=== PATIENT | male | born 2000 | race Caucasian/White ===

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

== ENCOUNTER 2022-05-23 19:51 | Inpatient (IN) ==
--- NOTE | 2022-05-23 20:36 | Emergency Department Note ---
Impression & Plan Depression with suicidal ideation ED Provider Note Name: AMAURI GUNDERSON Age: 22 Sex: M Arrives Via: Walk-In Informant: Patient ED Provider: Yadiel Wolfe MD Chief Complaint: Suicidal ideation Impression: As per impressions above Medical Decision Makin-year-old male with longstanding history of depression and some chronic underlying suicidal ideation but never significant plan or intent previously. Worsening depression the last few weeks to the point where he is now contemplating jumping off a bridge. He has been in discussions with his head counselor or/psychology team who advised to come to the ER for hospitalization. Patient has not harmed himself he is awake alert oriented does not meet an active furtherance at this point. He is agreeable to inpatient treatment on a voluntary basis. Medical work-up is benign and he was excepted to [facility] in short order. Prior Medical Record and Triage/Nursing Notes reviewed by Me Additional history obtained from chart Differentials:Mood disorder, infection, hypoglycemia, electrolyte abnormalities, cardiac sources, intracerebral event, toxicologic, trauma, neurologic, as well as other pathologies. Vital Signs: reviewed and remarkable for no significant abnormalities Labs:Reviewed and remarkable for no significant abnormalities Consults:[facility] accepts to their facility Plan: Disposition: Discharged.Home. Condition: Good History of Present Illness:22-year-old male arrives for evaluation of suicidal ideation. Patient notes he has a long history of depression with previous suicidal thoughts which are pretty common for him. He is never had any actual attempt and or plan of harming himself. The last few weeks have been quite stressful doing poorly with several of his classes. Over the course of the last week or 2 he started develop plans to kill himself. His current thought is that he would jump off a bridge depending on how he did on his testing and is even figured out which he would do so. Patient denies any actual attempt at harming self, no drug use in the last 2 weeks (previously used marijuana) nor alcohol use. He is on venlafaxine which was recently increased dosing without much improvement. He had previously been on Adderall though this was stopped due to worsening suicidal thoughts. No falls, trauma, injuries. He did talk to his counselor in the last few days who advised to come to the ER for hospitalization for acute depression with suicidal ideation. No medication prior to arrival. Think about classes makes worse, avoiding them makes it better. Per his mother he has had 40 pound weight loss in the last year due to not eating, keeping himself away from others, increased sleeping but also not sleeping during the night. ROS: See above HPI for pertinent positives & negatives. A total of 10 systems reviewed and were otherwise negative. Past Medical History:Anxiety, depression, ADHD Past Surgical History:None Family History:No significant family history other than sister did have a suicide attempt several years ago Social History:[employer] student, fully vaccinated, no tobacco use, occasional marijuana use, rare alcohol use Home Medications:Venlafaxine Allergies:Latex Vitals:Blood Pressure: 139/85, Pulse 107, RR 16, T 36.9C, O2 98% on RA Physical Exam: GENERAL: Patient is well appearing and in no acute distress. EYES: No scleral icterus, unremarkable pupils. ENT: Mucous membranes moist, no nasal congestion. NECK: No masses appreciated, nomeningismus, trachea is midline. RESPIRATORY: No dyspnea. Clear to auscultation and equal bilaterally. No wheeze, no rhonchi. CARDIOVASCULAR: Regular rate and rhythm.No murmurs, rubs, gallops appreciated. GASTROINTESTINAL: Abdomen soft, non-tender, no peritonitis.Bowel sounds positive.No masses appreciated. BACK: No midline tenderness, no CVA tenderness EXTREMITIES: Normal motion all extremities, no cyanosis, no edema. NEUROLOGIC: Alert and oriented, no acute motor or sensory deficits, no focal weakness, cranial nerves grossly intact. SKIN: No rash, no jaundice, no diaphoresis. PSYCH: Sad, depressed, admits suicidal ideation plan, denies hallucinations, states increased dreams that are depression GCS: 15 Yadiel Wolfe MD Past Med/Surg History Medical History Abdominal pain Depression Laceration of left lower leg Nausea School problem Surgical History No history of previous surgery Family History Grandmother (Maternal) Diabetes Hypertension Grandmother (Paternal) Diabetes Hypertension Grandfather (Maternal) Diabetes Hypertension Grandfather (Paternal) Diabetes Hypertension Father Family history of GERD Denies family history of Sudden Ovarian cancer Prostate cancer Myocardial infarction Breast cancer Colorectal cancer ADHD Social History Smoking Status: Former smoker Tobacco Type: E-cigarettes / Vaping Second Hand Exposure: No; Hx Alcohol Use: Yes Alcohol type: beer, wine and hard liquor Alcohol Intake Frequency: Monthly or Less Hx Substance Use: Yes Prescribed Medications: Marijuana Non-Prescribed Medications: Marijuana Last Used Substance Other:: last week Preferred Language: [place]i Communication Ability: Effective Visual Impairment: No Limitations Hearing Ability: Normal Special Education Classroom Aide Required: No Beliefs That Will Affect Care: None marital status: Single Current Living Situation: Family current occupational status: employed and student 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 Feels Safe at Home: No Dental Care, Regularly: Yes Physical Activity Frequency: Does not Exercise Seatbelt Use: always Sunscreen Use: No Assistive Devices: Glasses Allergies Allergies Allergy/AdvReac Type Severity Reaction Status Date / Time latex gloves Allergy Uncoded 02/11/22 11:02 Home Meds Home Medications Medication Instructions Recorded Confirmed venlafaxine 150 mg 225 mg PO DAILY 03/05/22 05/23/22 capsule,extended release 24 hr (Effexor XR) Results & Data (ED) Vital Signs Vital Signs - 24 hr 05/23/22 20:01 Temperature 36.9 C Temperature Source Temporal Artery Scan Pulse Rate 107 H Respiratory Rate 16 Respiratory Effort / Characteristics Non-Labored Spontaneous Respiratory Depth Normal Blood Pressure 139/85 Blood Pressure Mean 103 Pulse Oximetry 98 Oxygen Delivery Method Room Air Sepsis Recent Fever Within 48 Hours No Sepsis New/Unexplained Change in Mental Status No Sepsis Action Taken by Nursing No Action Required Laboratory Data Result diagrams: 05/23/22 20:45 05/23/22 20:45 Lab Results 05/23/22 05/23/22 05/23/22 Range/Units 20:15 20:15 20:15 WBC (4.8-10.8) K/ul RBC (4.63-6.08) M/uL Hgb (14.0-18.0) g/dl Hct (40.1-51.0) % MCV (80.0-100.0) fL MCH (25.0-34.0) pg MCHC (32.0-36.0) g/dL RDW Std Deviation (36.4-46.3) fL RDW Coeff of Francois (11.5-14.5) % Plt Count (130-400) K/uL MPV (9.4-12.4) fL Immature Gran % (Auto) % Neut % (Auto) % Lymph % (Auto) % [place] % (Auto) % Eos % (Auto) % Baso % (Auto) % Neut # (Auto) (1.4-6.5) K/uL Lymph # (Auto) (1.2-3.4) K/uL [place] # (Auto) (0.24-0.82) K/uL Eos # (Auto) (0-0.50) K/uL Baso # (Auto) (0-0.2) K/uL Immature Gran # (Auto) (0.00-0.02) K/uL Sodium (136-145) mmol/L Potassium (3.5-5.1) mmol/L Chloride (98-107) mmol/L Carbon Dioxide (21-32) mmol/L Anion Gap (3-11) BUN (6-23) mg/dl Creatinine (0.6-1.4) mg/dl Est Cr Clr Drug Dosing ml/min Est GFR ( Amer) ml/min Est GFR (Non-Af Amer) ml/min BUN/Creatinine Ratio (10-20) Glucose (70-99(Fasting)) mg/dl Calcium (8.5-10.1) mg/dl Total Bilirubin (0.2-1.0) mg/dl AST (13-39) U/L ALT (7-52) U/L Alkaline Phosphatase (34-104) U/L Total Protein (6.0-8.3) gm/dl Albumin (3.4-5.0) gm/dl Globulin (2.5-4.0) gm/dl Albumin/Globulin Ratio (0.9-2) TSH (0.300-4.500) uIu/ml Urine Color Yellow Urine Appearance Clear (Clear) Urine pH 6.5 (4.5-7.5) Ur Specific [place] 1.004 (1.000-1.030) Urine Protein Negative (Negative) Urine Glucose (UA) Negative (Negative) Urine Ketones Negative (Negative) Urine Blood Negative (Negative) Urine Nitrite Negative (Negative) Urine Bilirubin Negative (Negative) Urine Urobilinogen Negative (Negative) Ur Leukocyte Esterase Negative (Negative) Salicylates (3.0-30) mg/dl Urine Opiates Screen Neg (Neg) Ur Methadone, Qual Neg (Neg) Acetaminophen (10-30) ug/ml Urine Barbiturates Neg (Neg) Ur Phencyclidine (PCP) Neg (Neg) U Amphetamin/Meth Scrn Neg (Neg) MDMA (Ecstasy) Screen Neg (Neg) U Benzodiazepines Scrn Neg (Neg) Ur Cocaine Metabolite Neg (Neg) U Marijuana (THC) Screen Pos H (Neg) Ethyl Alcohol mg/dL (<10.0) mg/dl SARS-CoV-2, RNA, NAAT NEGATIVE (NEGATIVE) 05/23/22 05/23/22 05/23/22 Range/Units 20:45 20:45 20:45 WBC 6.78 (4.8-10.8) K/ul RBC 4.80 (4.63-6.08) M/uL Hgb 14.3 (14.0-18.0) g/dl Hct 41.6 (40.1-51.0) % MCV 86.7 (80.0-100.0) fL MCH 29.8 (25.0-34.0) pg MCHC 34.4 (32.0-36.0) g/dL RDW Std Deviation 39.2 (36.4-46.3) fL RDW Coeff of Francois 12.3 (11.5-14.5) % Plt Count 198 (130-400) K/uL MPV 10.2 (9.4-12.4) fL Immature Gran % (Auto) 0.0 % Neut % (Auto) 57.3 % Lymph % (Auto) 31.3 % [place] % (Auto) 9.4 % Eos % (Auto) 1.6 % Baso % (Auto) 0.4 % Neut # (Auto) 3.88 (1.4-6.5) K/uL Lymph # (Auto) 2.12 (1.2-3.4) K/uL [place] # (Auto) 0.64 (0.24-0.82) K/uL Eos # (Auto) 0.11 (0-0.50) K/uL Baso # (Auto) 0.03 (0-0.2) K/uL Immature Gran # (Auto) 0.00 (0.00-0.02) K/uL Sodium 140 (136-145) mmol/L Potassium 4.0 (3.5-5.1) mmol/L Chloride 104 (98-107) mmol/L Carbon Dioxide 30 (21-32) mmol/L Anion Gap 6 (3-11) BUN 22 (6-23) mg/dl Creatinine 1.24 (0.6-1.4) mg/dl Est Cr Clr Drug Dosing 84.3 ml/min Est GFR ( Amer) 95.0 ml/min Est GFR (Non-Af Amer) 82.0 ml/min BUN/Creatinine Ratio 17.7 (10-20) Glucose 84 (70-99(Fasting)) mg/dl Calcium 9.7 (8.5-10.1) mg/dl Total Bilirubin 0.4 (0.2-1.0) mg/dl AST 15 (13-39) U/L ALT 26 (7-52) U/L Alkaline Phosphatase 39 (34-104) U/L Total Protein 7.2 (6.0-8.3) gm/dl Albumin 4.6 (3.4-5.0) gm/dl Globulin 2.6 (2.5-4.0) gm/dl Albumin/Globulin Ratio 1.8 (0.9-2) TSH 0.652 (0.300-4.500) uIu/ml Urine Color Urine Appearance (Clear) Urine pH (4.5-7.5) Ur Specific [place] (1.000-1.030) Urine Protein (Negative) Urine Glucose (UA) (Negative) Urine Ketones (Negative) Urine Blood (Negative) Urine Nitrite (Negative) Urine Bilirubin (Negative) Urine Urobilinogen (Negative) Ur Leukocyte Esterase (Negative) Salicylates (3.0-30) mg/dl Urine Opiates Screen (Neg) Ur Methadone, Qual (Neg) Acetaminophen (10-30) ug/ml Urine Barbiturates (Neg) Ur Phencyclidine (PCP) (Neg) U Amphetamin/Meth Scrn (Neg) MDMA (Ecstasy) Screen (Neg) U Benzodiazepines Scrn (Neg) Ur Cocaine Metabolite (Neg) U Marijuana (THC) Screen (Neg) Ethyl Alcohol mg/dL (<10.0) mg/dl SARS-CoV-2, RNA, NAAT (NEGATIVE) 05/23/22 05/23/22 Range/Units 20:45 20:45 WBC (4.8-10.8) K/ul RBC (4.63-6.08) M/uL Hgb (14.0-18.0) g/dl Hct (40.1-51.0) % MCV (80.0-100.0) fL MCH (25.0-34.0) pg MCHC (32.0-36.0) g/dL RDW Std Deviation (36.4-46.3) fL RDW Coeff of Francois (11.5-14.5) % Plt Count (130-400) K/uL MPV (9.4-12.4) fL Immature Gran % (Auto) % Neut % (Auto) % Lymph % (Auto) % [place] % (Auto) % Eos % (Auto) % Baso % (Auto) % Neut # (Auto) (1.4-6.5) K/uL Lymph # (Auto) (1.2-3.4) K/uL [place] # (Auto) (0.24-0.82) K/uL Eos # (Auto) (0-0.50) K/uL Baso # (Auto) (0-0.2) K/uL Immature Gran # (Auto) (0.00-0.02) K/uL Sodium (136-145) mmol/L Potassium (3.5-5.1) mmol/L Chloride (98-107) mmol/L Carbon Dioxide (21-32) mmol/L Anion Gap (3-11) BUN (6-23) mg/dl Creatinine (0.6-1.4) mg/dl Est Cr Clr Drug Dosing ml/min Est GFR ( Amer) ml/min Est GFR (Non-Af Amer) ml/min BUN/Creatinine Ratio (10-20) Glucose (70-99(Fasting)) mg/dl Calcium (8.5-10.1) mg/dl Total Bilirubin (0.2-1.0) mg/dl AST (13-39) U/L ALT (7-52) U/L Alkaline Phosphatase (34-104) U/L Total Protein (6.0-8.3) gm/dl Albumin (3.4-5.0) gm/dl Globulin (2.5-4.0) gm/dl Albumin/Globulin Ratio (0.9-2) TSH (0.300-4.500) uIu/ml Urine Color Urine Appearance (Clear) Urine pH (4.5-7.5) Ur Specific [place] (1.000-1.030) Urine Protein (Negative) Urine Glucose (UA) (Negative) Urine Ketones (Negative) Urine Blood (Negative) Urine Nitrite (Negative) Urine Bilirubin (Negative) Urine Urobilinogen (Negative) Ur Leukocyte Esterase (Negative) Salicylates < 3.0 L (3.0-30) mg/dl Urine Opiates Screen (Neg) Ur Methadone, Qual (Neg) Acetaminophen < 3 L (10-30) ug/ml Urine Barbiturates (Neg) Ur Phencyclidine (PCP) (Neg) U Amphetamin/Meth Scrn (Neg) MDMA (Ecstasy) Screen (Neg) U Benzodiazepines Scrn (Neg) Ur Cocaine Metabolite (Neg) U Marijuana (THC) Screen (Neg) Ethyl Alcohol mg/dL < 10.0 (<10.0) mg/dl SARS-CoV-2, RNA, NAAT (NEGATIVE) Discharge Plan Visit Data Chief Complaint: Mental Health Evaluation Stated Complaint: SUICIDAL THOUGHTS. REC BY THERAPIST ED Provider: Yadiel Wolfe Discharge Problem: Depression with suicidal ideation Patient Disposition: Admitted As Inpatient Discharge Instructions Interventions: ED Discharge Assessment Last Done: 05/24/22 00:20
[2022-05-23 20:58] LABS: Appearance Urine Clear (Clear); Bilirubin Urine Negative (Negative); Blood Urine Negative (Negative); Color Urine Yellow; Glucose Urine UA Negative (Negative); Ketones Urine Negative (Negative); Leukocyte Esterase Urine Negative (Negative); Nitrite Urine Negative (Negative); Protein Urine Negative (Negative); Specific Gravity Urine 1.004 (1.000-1.030); Urobilinogen Urine Negative (Negative); pH Urine 6.5 (4.5-7.5)
[2022-05-23 20:58] LABS: Basophils # (auto) 0.03 K/uL (0-0.2); Basophils % (auto) 0.4 %; Eosinophils # (auto) 0.11 K/uL (0-0.50); Eosinophils % (auto) 1.6 %; Hematocrit (blood only) 41.6 % (40.1-51.0); Hemoglobin 14.3 g/dl (14.0-18.0); Lymphocytes # (auto) 2.12 K/uL (1.2-3.4); Lymphocytes % (auto) 31.3 %; Mean Corpuscular Hemoglobin 29.8 pg (25.0-34.0); Mean Corpuscular Hgb Conc 34.4 g/dL (32.0-36.0); Mean Corpuscular Volume 86.7 fL (80.0-100.0); Mean Platelet Volume 10.2 fL (9.4-12.4); Monocytes # (auto) 0.64 K/uL (0.24-0.82); Monocytes % (auto) 9.4 %; Neutrophils # (auto) 3.88 K/uL (1.4-6.5); Neutrophils % (auto) 57.3 %; Platelet Count 198 K/uL (130-400); RDW Coefficient of Variation 12.3 % (11.5-14.5); RDW Standard Deviation 39.2 fL (36.4-46.3); White Blood Count 6.78 K/ul (4.8-10.8)
[2022-05-23 21:34] LABS: Acetaminophen < 3 ug/ml (10-30); Albumin Globulin Ratio 1.8 (0.9-2); Albumin Level 4.6 gm/dl (3.4-5.0); BUN Creatinine Ratio 17.7 (10-20); Bilirubin,Total 0.4 mg/dl (0.2-1.0); Calcium 9.7 mg/dl (8.5-10.1); Creatinine Clr Calc Pharmacy 84.3 ml/min; Globulin 2.6 gm/dl (2.5-4.0); Salicylate < 3.0 mg/dl (3.0-30); Total Protein 7.2 gm/dl (6.0-8.3)
[2022-05-23 21:36] LABS: Amphetamines+Metham, Urine Neg (Neg); Barbiturates, Urine Neg (Neg); Benzodiazepine, Urine Neg (Neg); Cocaine, Urine Neg (Neg); MDMA (Ecstacy), Urine Neg (Neg); Methadone, Urine Neg (Neg); Opiate, Urine Neg (Neg); Phencyclidine, Urine Neg (Neg)
[2022-05-23] MEDS ORDERED: MAGNESIUM HYDROXIDE SUSP 30 ML UDC PO PRN (23:48)
[2022-05-23] MEDS ORDERED: SODIUM CHLORIDE 0.65% NA SOLN 45 ML (OCEAN) PRN (23:48)
[2022-05-23] MEDS ORDERED: ACETAMINOPHEN 325 MG TAB PO PRN (23:48)
[2022-05-23] MEDS ORDERED: ALUMINUM/MAGNESIUM SUSP 30 ML UDC PO PRN (23:48)
[2022-05-23] MEDS ORDERED: hydrOXYzine HCl 25 MG TAB PO PRN ×2 (23:48)
[2022-05-23] MEDS ORDERED: BISMUTH SUBSALICYLATE LIQD 236 ML PO PRN (23:48)
[2022-05-24] MEDS ORDERED: FLUARIX QUADRIVALENT 0.5 ML SYR IM ONE (09:00)
--- NOTE | 2022-05-24 14:26 | History & Physical ---
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 Diagnostically consistent with major depressive disorder, recurrent with anxious distress and ADHD by history of history of cannabis use though has been abstaining from this for the past two weeks. The patient is deemed unstable and requires psychiatric hospitalization for diagnostic clarification, safety and stabilization, medication management and development of further coping skills. Discussed medication treatment options in detail. Discussed risks, benefits and alternatives. Patient would like to continue with and consented to Effexor XR for MDD/HAWA and mirtazapine for MDD and insomnia/poor appetite. Reviewed side effects including but not limited to: GI, MENDOSA, sexual side effects, and counseled on black box warning of potential for emergence of or increased SI and need to let staff know should this occur or should they feel unsafe. Also discussed importance of seeking emergency care following discharge if this side effect occurs in the future. Also discussed sedation, increased appetite with mirtazap ine. Could consider augmentation with clonidine for ADHD, off-label for anxiety and insomnia and some data that this is helpful for cannabis use in transitional age youth/young adults. (1) MDD (major depressive disorder), recurrent episode, severe: (2) ADHD (attention deficit hyperactivity disorder): Plan 05/24/22: The patient was admitted to the [facility] ([facility] mental [facility]) on q15 min checks (behavioral with suicide precautions) for safety. The patient will participate in group, recreational, and milieu therapies and will be offered additional individual and family sessions as clinically appropriate. -Effexor XR 225mg qd -mirtazapine 15mg qhs -CAMS approach to his suicidality to further delineate his driving factors and modifiable risk factors -Encourage [facility] IOP consideration Inventory Assets Strengths: supportive relationships, willing to get treatment, good rapport with outpatient providers Needs: safety and stabilization, medication adjustment, additional coping skills, in creased outpatient services Suicide Risk Level Suicide Risk Level: High-Moderate (q15 min suicide checks) (severe depression with SI with plan prior to admission but feels safe in the hospital, able to safety contract and agrees to let nursing/staff know should they develop plan, intent or feel unable to remain safe. ) Risk Factors Assessment Male: Yes Do You Have Access To A Gun?: Yes Mental Health Diagnoses: Yes Previous Attempt: Yes Previous Psychiatric Hospitalization: Yes Protective Factors Assessment Employed: No Stable Relationships: Yes Supportive Family: Yes Good Rapport with Provider: Yes Psychiatric History Identifying Data MARIO GUNDERSON is a 22-year-old man and [employer] student who currently lives in [place] with his parents, has a history of depression, anxiety and ADHD, and was admitted on 05/23/22 23:48 on a 201 voluntary commitment for worsening depression and SI. Chief Complaint "I don't see a point if I don't do well this semester because this what I need to do, my life depends on what these grades look like". History of Present Illness Mario presents for psychiatric admission for worsening depression and SI with plan of driving or jumping from a bridge in the context of multiple psychosocial stressors including academic challenges and recently stopping use of cannabis. He describes having intermittent chronic "vague suicidal thoughts" but that these have not been as intense since being on venlafaxine but over the past few weeks SI has been "ramping up" because of school stress and the semester getting more difficulty. He notes his identity is tied to his grades and he feels like if he fails his classes he by jumping from a specific bridge in [place] and notes this has been a plan for awhile but his outpatient therapist recommended given that this hasn't been lessening that he should consider inpatient treatment. He explains "the bridge is so high I know if I were to jump there it would work for sure". He's taking 5 courses this semester and 3 are going well but 2 are not. He's been struggling to attend class due to his sleep schedule with his lowest grades in his two morning classes. He struggles to identify reasons for living but is able to list his family and potential to improve his academics and eventually get a job and talking to friends from high school. He endorses depressive symptoms including anhedonia (no longer likes playing video games or watching videos/content), self-guilt, hopelessness, helplessness, low energy, decreased motivation, decreased concentration (feels like he can only focus at 2 or 3am or if he uses Ritalin), sleep schedule is very inconsistent, decreased appetite has lost about 40 lbs in the last year in part due to wanting to lose weight but also due to not being hungry usually only 1-2 meals. Experiences SI every day with plan of the bridge starting about 1 year ago but now feels like due to history of academic probation and multiple years of taking a break that "I'm not sure how much longer I can keep doing this". He also endorses some anxiety that he tends to worry a lot. Further recent history reviewed and confirmed as documented by ED psych CM on 05/23/22: "CM and Dr. Wolfe met with pt bedside to complete brief MH and suicide risk assessment. Pts parents in attendance with pt consent. Pt here on recommendation of his therapist, Melissa Jarvis and his prescriber, Roshni Traylor PA-C, both with [facility]. Pt states he has had chronic suicidal ideations over the past year but states they have worsened lately. Pt is suicidal with a plan to either drive or jump off the [employer] in [facility] if he does not get his grades up this semester. 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 He denies current D&A use but was smoking marijuana chronically until two weeks ago. No prior inpatient stays. 1 prior suicide attempt approximately 5 years ago via overdose. Pt states his suicidal ideations are worse now than they were at that time. Denies self-injury, denies AH/VH/Paranoia. Pt states his dreams have been more "unsettling" lately. Pt has been sleeping during the day and staying up most of the night, decreased appetite over the past year as well resulting in a weight loss of approximately 40 pounds. Pt is on Effexor 225mg and was recently on Methylphenidate but stopped about 2 weeks ago per prescriber recommendation. Pt is willing for inpatient stay at this time and prefers . Process for medical clearance was explained with pt verbalizing understanding." He is currently prescribed Effexor XR 225mg with dose increased a few months ago, he feels like this has been helping. Believes he also started mirtazapine this past week to help with appetite. Psychiatric ROS notable for no current nor history of symptoms of [place], psychosis, PTSD, OCD nor eating disorder. History of self-harming once via cutting himself on his hand when depressed a few years ago but never since then. Has brought home an Xacto knife from worse thinking about harming himself via cutting to self-soothe but never acted on this. Past Psychiatric History Previous Psych History: tested for ADHD in high school and looked more consistent with anxiety but this year was diagnosed with ADHD Current Psychiatric Diagnosis: MDD, HAWA, ADHD Outpatient Services: Roshni Traylor for psychiatric provider, Kitty Jarvis for therapy twice monthly to once monthly for supportive therapy Previous Psych Admissions: n/a Do You Have Access To A Gun?: Yes History of Previous Suicide Attempt: Yes Describe Attempts in the Past: took a bunch of medications in 2017 or 2018 and was seen at the hospit Past Medication Trials: hx methylphenidate in past stopped due to substance use; Wellbutrin (he can't remember how this was), sertraline, escitalopram Doesn't think he's ever tried clonidine or guanfacine nor trazodone nor [place] nor antipsychotics Past Head Trauma/Neuro History History of Concussion/Seizure: Yes (seizure this summer after lack of sleep and maybe medications/substance use) CT and MRI and EEG were all normal, no seizures since that time Allergies Allergy/AdvReac Type Severity Reaction Status Date / Time latex gloves Allergy Uncoded 05/24/22 15:29 Home Medications Medication Instructions Recorded Confirmed Type venlafaxine 150 mg 225 mg PO DAILY 03/05/22 05/23/22 History capsule,extended release 24 hr (Effexor XR) Family History Family History of: Depression (maternal aunt, sister) and Suicide Attempts Family Mental Health History Comment: Pts sister attempted suicide at 16yrs old. Alcohol History Hx of Alcohol Use Over the Past 12 Months: Yes (5-6 drinks monthly or less) AUDIT Total Score: 3 Smoking Use Have You Smoked or Used Tobacco Products in the Last 30 Days: No Smoking Status: Former smoker (vaped in the past) Substance History Hx of Prescription Med Misuse Over the Past 12 Months: No (5-6 drinks monthly or less) Hx of Over the Counter Med Misuse Over the Past 12 Months: No Hx of Inhalent Misuse Over the Past 12 Months: No Hx of Organic Substance Use Over the Past 12 Months: Yes (Marijuana) Hx of Illegal Substances/Street Drug Use Over Past 12 Months: No Problems as a Result of Past Substance Use: None Identified uses cannabis, hasn't used it in the past two weeks, but prior to that was using it daily; he likes that it helps him with his mood when he feels stressed or depressed; doesn't like that it disturbs his sleep schedule and hard to stop using it Personal History Living Arrangements: Home Childhood: Parents are . Has a younger sister who goes to [employer] so lives at home on school breaks Highest Grade Completed: Some College Employment Status: Student ([employer] sophomore per credits so will graduate in 2024; psychology. Also works at [employer]) Marital Status: Single Number Of Children: n/a Beliefs That Will Affect Care: None Current Legal Problems: No Hx Legal Problems: No Hx Traumatic Life Events: No Patient History Medical History Abdominal pain ADHD (attention deficit hyperactivity disorder) Depression Laceration of left lower leg Nausea School problem Surgical History No history of previous surgery Family History Grandmother (Maternal) Diabetes Hypertension Grandmother (Paternal) Diabetes Hypertension Grandfather (Maternal) Diabetes Hypertension Grandfather (Paternal) Diabetes Hypertension Father Family history of GERD Denies family history of Sudden Ovarian cancer Prostate cancer Myocardial infarction Breast cancer Colorectal cancer ADHD Social History Smoking Status: Former smoker (vaped in the past) Tobacco Type: E-cigarettes / Vaping Second Hand Exposure: No; Hx Alcohol Use: Yes Alcohol type: beer, wine and hard liquor Alcohol Intake Frequency: Monthly or Less Hx Substance Use: Yes Prescribed Medications: Marijuana Non-Prescribed Medications: Marijuana Last Used Substance Other:: last week Preferred Language: Belarusian Communication Ability: Effective Visual Impairment: No Limitations Hearing Ability: Normal Transcript Evaluator Required: No Beliefs That Will Affect Care: None marital status: Single Current Living Situation: Family current occupational status: employed and student 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 Feels Safe at Home: No Dental Care, Regularly: Yes Physical Activity Frequency: Does not Exercise Seatbelt Use: always Sunscreen Use: No Assistive Devices: Glasses Review of Systems Review of Systems: All systems reviewed & are unremarkable except as noted in HPI & below (some mild right shoulder pain) Physical Exam Psychiatric: Orientation: alert and oriented x 3 Apperance: appropriately dressed and appropriately groomed Eye Contact: good eye contact Motor Behavior: no abnormal motor movements Speech: normal rate/rhythm/volume of speech Affect: + anxious affect and + constricted affect Mood: + depressed mood and + anxious mood Thought Process: goal directed thought process Thought Content: reality based without delusions Suicidal Thoughts: denies suicidal intent; + reports suicidal thoughts (intermittent thoughts ) and + reports suicidal plan (none for in the hospital, bridge outside the hospital) Homicidal Thoughts: denies homicidal thoughts Hallucinations: no auditory hallucinations and no visual hallucinations Cognition: recent memory grossly intact, remote memory grossly intact, attention grossly intact and language grossly intact Estimated Intelligence: consistent with education level Insight: + limited insight Judgement: + limited judgement Vital Signs (Past 24 Hours): Last Vital Signs Temp 36.3 C L 05/24/22 06:46 Pulse 65 05/24/22 06:46 Resp 16 05/24/22 06:46 BP 106/66 05/24/22 06:46 Pulse Ox 100 05/24/22 01:02 O2 Del Method 05/24/22 01:02 Exam Statement: A physical exam was performed in the ED by Dr. Wolfe for the purposes of medical clearance. I accept that physical as correct and adequate for the purposes of the inpatient physical exam. Results & Data ([facility]) Laboratory Results Laboratory Results - last 24 hr 05/23/22 05/23/22 05/23/22 20:15 20:15 20:15 WBC RBC Hgb Hct MCV MCH MCHC RDW Std Deviation RDW Coeff of Francois Plt Count MPV Immature Gran % (Auto) Neut % (Auto) Lymph % (Auto) Baker % (Auto) Eos % (Auto) Baso % (Auto) Neut # (Auto) Lymph # (Auto) Baker # (Auto) Eos # (Auto) Baso # (Auto) Immature Gran # (Auto) Sodium Potassium Chloride Carbon Dioxide Anion Gap BUN Creatinine Est Cr Clr Drug Dosing Est GFR ( Amer) Est GFR (Non-Af Amer) BUN/Creatinine Ratio Glucose Calcium Total Bilirubin AST ALT Alkaline Phosphatase Total Protein Albumin Globulin Albumin/Globulin Ratio TSH Urine Color Yellow Urine Appearance Clear Urine pH 6.5 Ur Specific Ackerly 1.004 Urine Protein Negative Urine Glucose (UA) Negative Urine Ketones Negative Urine Blood Negative Urine Nitrite Negative Urine Bilirubin Negative Urine Urobilinogen Negative Ur Leukocyte Esterase Negative Salicylates Urine Opiates Screen Neg Ur Methadone, Qual Neg Acetaminophen Urine Barbiturates Neg Ur Phencyclidine (PCP) Neg U Amphetamin/Meth Scrn Neg MDMA (Ecstasy) Screen Neg U Benzodiazepines Scrn Neg Ur Cocaine Metabolite Neg U Marijuana (THC) Screen Pos H U Marijuana THC Carboxy Drug Screen Comment Ethyl Alcohol mg/dL SARS-CoV-2, RNA, NAAT NEGATIVE 05/23/22 05/23/22 05/23/22 20:15 20:45 20:45 WBC 6.78 RBC 4.80 Hgb 14.3 Hct 41.6 MCV 86.7 MCH 29.8 MCHC 34.4 RDW Std Deviation 39.2 RDW Coeff of Francois 12.3 Plt Count 198 MPV 10.2 Immature Gran % (Auto) 0.0 Neut % (Auto) 57.3 Lymph % (Auto) 31.3 Baker % (Auto) 9.4 Eos % (Auto) 1.6 Baso % (Auto) 0.4 Neut # (Auto) 3.88 Lymph # (Auto) 2.12 Baker # (Auto) 0.64 Eos # (Auto) 0.11 Baso # (Auto) 0.03 Immature Gran # (Auto) 0.00 Sodium 140 Potassium 4.0 Chloride 104 Carbon Dioxide 30 Anion Gap 6 BUN 22 Creatinine 1.24 Est Cr Clr Drug Dosing 84.3 Est GFR ( Amer) 95.0 Est GFR (Non-Af Amer) 82.0 BUN/Creatinine Ratio 17.7 Glucose 84 Calcium 9.7 Total Bilirubin 0.4 AST 15 ALT 26 Alkaline Phosphatase 39 Total Protein 7.2 Albumin 4.6 Globulin 2.6 Albumin/Globulin Ratio 1.8 TSH Urine Color Urine Appearance Urine pH Ur Specific Ackerly Urine Protein Urine Glucose (UA) Urine Ketones Urine Blood Urine Nitrite Urine Bilirubin Urine Urobilinogen Ur Leukocyte Esterase Salicylates Urine Opiates Screen Ur Methadone, Qual Acetaminophen Urine Barbiturates Ur Phencyclidine (PCP) U Amphetamin/Meth Scrn MDMA (Ecstasy) Screen U Benzodiazepines Scrn Ur Cocaine Metabolite U Marijuana (THC) Screen U Marijuana THC Carboxy Pending Drug Screen Comment Pending Ethyl Alcohol mg/dL SARS-CoV-2, RNA, NAAT 05/23/22 05/23/22 05/23/22 20:45 20:45 20:45 WBC RBC Hgb Hct MCV MCH MCHC RDW Std Deviation RDW Coeff of Francois Plt Count MPV Immature Gran % (Auto) Neut % (Auto) Lymph % (Auto) Baker % (Auto) Eos % (Auto) Baso % (Auto) Neut # (Auto) Lymph # (Auto) Baker # (Auto) Eos # (Auto) Baso # (Auto) Immature Gran # (Auto) Sodium Potassium Chloride Carbon Dioxide Anion Gap BUN Creatinine Est Cr Clr Drug Dosing Est GFR ( Amer) Est GFR (Non-Af Amer) BUN/Creatinine Ratio Glucose Calcium Total Bilirubin AST ALT Alkaline Phosphatase Total Protein Albumin Globulin Albumin/Globulin Ratio TSH 0.652 Urine Color Urine Appearance Urine pH Ur Specific Ackerly Urine Protein Urine Glucose (UA) Urine Ketones Urine Blood Urine Nitrite Urine Bilirubin Urine Urobilinogen Ur Leukocyte Esterase Salicylates < 3.0 L Urine Opiates Screen Ur Methadone, Qual Acetaminophen < 3 L Urine Barbiturates Ur Phencyclidine (PCP) U Amphetamin/Meth Scrn MDMA (Ecstasy) Screen U Benzodiazepines Scrn Ur Cocaine Metabolite U Marijuana (THC) Screen U Marijuana THC Carboxy Drug Screen Comment Ethyl Alcohol mg/dL < 10.0 SARS-CoV-2, RNA, NAAT Current Inpatient Medications Current Inpatient Medications: Current Inpatient Medications Acetaminophen (Acetaminophen 325 Mg Tab) 650 mg PO Q4H PRN PRN Reason: Headache or Minor Fever Stop: 06/22/22 23:47 Al Hydrox/Mg Hydrox/Simethicone (Aluminum/Magnesium Susp 30 Ml Udc) 30 ml PO Q4H PRN PRN Reason: GI Upset Stop: 06/22/22 23:47 Bismuth Subsalicylate (Bismuth Subsalicylate Liqd 236 Ml) 15 ml PO PRN PRN PRN Reason: Loose Stool Stop: 06/22/22 23:47 Hydroxyzine HCl (Hydroxyzine Hcl 25 Mg Tab) 50 mg PO HSZ PRN PRN Reason: Insomnia Stop: 06/22/22 23:47 Hydroxyzine HCl (Hydroxyzine Hcl 25 Mg Tab) 25 mg PO Q4H PRN PRN Reason: Anxiety Stop: 06/22/22 23:47 Magnesium Hydroxide (Magnesium Hydroxide Susp 30 Ml Udc) 30 ml PO DAILY PRN PRN Reason: Constipation Stop: 06/22/22 23:47 Sodium Chloride (Sodium Chloride 0.65% Na Soln 45 Ml ([place])) 1 - 2 sprays NA PRN PRN PRN Reason: Nasal Dryness/Congestion Stop: 06/22/22 23:47
[2022-05-24] MEDS: VENLAFAXINE HCL XR 75 MG CAPXR PO SCH (17:08)
[2022-05-24] MEDS: MIRTAZAPINE TAB 15 MG TAB PO SCH (22:13)
[2022-05-25] MEDS: VENLAFAXINE HCL XR 75 MG CAPXR PO SCH (09:31)
--- NOTE | 2022-05-25 14:04 | Psychiatric Progress Note ---
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 Diagnostically consistent with major depressive disorder, recurrent with anxious distress and ADHD by history of history of cannabis use though has been abstaining from this for the past two weeks. The patient is deemed unstable and requires psychiatric hospitalization for diagnostic clarification, safety and stabilization, medication management and development of further coping skills. 05/25/22: Ongoing depression with SI related to academic struggles. Likely also component from significant cannabis use and potential for some protracted withdrawal symptoms. Consider use of clonidine if sleep difficulty persists. Working on challenging significant cognitive distortions especially all or nothing thinking. (1) MDD (major depressive disorder), recurrent episode, severe: (2) ADHD (attention deficit hyperactivity disorder): Plan 05/25/22: Continue current medications and tx plan. Ongoing motivational interviewing. 05/24/22: The patient was admitted to the [facility] ([facility] inpatient mental health unit) on q15 min checks (behavioral with suicide precautions) for safety. The patient will participate in group, recreational, and milieu therapies and will be offered additional individual and family sessions as clinically appropriate. -Effexor XR 225mg qd -mirtazapine 15mg qhs -CAMS approach to his suicidality to further delineate his driving factors and modifiable risk factors -Encourage [facility] IOP consideration Inventory Assets Strengths: supportive relationships, willing to get treatment, good rapport with outpatient providers Needs: safety and stabilization, medication adjustment, additional coping skills, in creased outpatient services Suicide Risk Level Suicide Risk Level: High-Moderate (q15 min suicide checks) (severe depression with SI with plan prior to admission but feels safe in the hospital, able to safety contract and agrees to let nursing/staff know should they develop plan, intent or feel unable to remain safe. 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 Chief Complaint "I always discount the achievements I have made, I always have caveats". Review of Systems Sleep Information Total Hours of Sleep: 6.2 Meal Information Percent Meal Consumed - Breakfast: 0 Percent Meal Consumed - Lunch: 100 Percent Meal Consumed - Dinner: 100 Subjective Subjective Patient was seen & assessed and interval progress reviewed with treatment team nursing and social work. Attending groups and actively participating. Fell asleep after about an hour and slept well after that. Woke up and out at breakfast by 8:15am. Continues to have SI with plan related to academics. Completed CAMS-and rated his risk of dying by suicide as 4 out of 5. Reviewed CAMS and that he identifies that his suicidality is driven by his sense of high self-hatred at having no accomplishments and that if he is not successful at school and cannot graduate then he should by suicide. Explored this further including his low self-esteem and sense of worthlessness and sense that success can only be defined by how he does academically. Reviewed all or nothing cognitive distortion related to this and his SI and has some insight but also struggles to identify other areas of self worth or potential ways to add to his life. Reviewed PERMA positive psychology/psychiatry model for happiness and asked him to work on this to identify potential areas we could identify to build self-worth and self-esteem, meaningfulness, sense of achievement (outside of academics) and self-worth. Agrees to continue considering [facility]. Not feeling need to make medication changes, no side effects from Effexor nor mirtazapine. Physical Exam Psychiatric Orientation: alert and oriented x 3 Apperance: appropriately dressed and appropriately groomed Eye Contact: good eye contact Motor Behavior: no abnormal motor movements Speech: normal rate/rhythm/volume of speech Affect: + anxious affect and + constricted affect Mood: + depressed mood and + anxious mood Thought Process: goal directed thought process Thought Content: reality based without delusions, + worthlessness and + self deprecation Suicidal Thoughts: denies suicidal intent; + reports suicidal thoughts (intermittent thoughts ) and + reports suicidal plan (none for in the hospital, bridge outside the hospital) Homicidal Thoughts: denies homicidal thoughts Hallucinations: no auditory hallucinations and no visual hallucinations Cognition: recent memory grossly intact, remote memory grossly intact, attention grossly intact and language grossly intact Estimated Intelligence: consistent with education level Insight: + limited insight Judgement: + limited judgement Vital Signs (Past 24 Hours) Last Vital Signs Temp 36.4 C L 05/25/22 06:40 Pulse 76 05/25/22 06:41 Resp 16 05/25/22 06:40 BP 117/75 05/25/22 06:41 Pulse Ox 100 05/24/22 01:02 O2 Del Method 05/24/22 01:02 Results & Data ([facility]) Current Inpatient Medications Current Inpatient Medications: Current Inpatient Medications Acetaminophen (Acetaminophen 325 Mg Tab) 650 mg PO Q4H PRN PRN Reason: Headache or Minor Fever Stop: 06/22/22 23:47 Al Hydrox/Mg Hydrox/Simethicone (Aluminum/Magnesium Susp 30 Ml Udc) 30 ml PO Q4H PRN PRN Reason: GI Upset Stop: 06/22/22 23:47 Bismuth Subsalicylate (Bismuth Subsalicylate Liqd 236 Ml) 15 ml PO PRN PRN PRN Reason: Loose Stool Stop: 06/22/22 23:47 Hydroxyzine HCl (Hydroxyzine Hcl 25 Mg Tab) 50 mg PO HSZ PRN PRN Reason: Insomnia Stop: 06/22/22 23:47 Hydroxyzine HCl (Hydroxyzine Hcl 25 Mg Tab) 25 mg PO Q4H PRN PRN Reason: Anxiety Stop: 06/22/22 23:47 Magnesium Hydroxide (Magnesium Hydroxide Susp 30 Ml Udc) 30 ml PO DAILY PRN PRN Reason: Constipation Stop: 06/22/22 23:47 Mirtazapine (Mirtazapine Tab 15 Mg Tab) 15 mg PO HS CALVIN Stop: 06/23/22 21:59 Last Admin: 05/24/22 22:13 Dose: 15 mg Sodium Chloride (Sodium Chloride 0.65% Na Soln 45 Ml (Descanso)) 1 - 2 sprays NA PRN PRN PRN Reason: Nasal Dryness/Congestion Stop: 06/22/22 23:47 Venlafaxine HCl (Venlafaxine Hcl Xr 75 Mg Capxr) 225 mg PO DAILY CALVIN Stop: 06/23/22 15:14 Last Admin: 05/25/22 09:31 Dose: 225 mg Mental Health & Subst Abuse Tx Psychiatrist Name of Psychiatrist: [facility] Psychiatrist's Psychiatric Appointment Comment: [address] [place], [place] Therapist [facility] Therapist's Therapy Appointment Comment: [address], [place] Post Discharge Appointments Primary Care Physician Name Of Family Doctor: Monik Stevens Primary Care Provider Appointment Comment: [address] *follow up as needed* Contact Information Discharge Discharge Address: [address] [place] [address]
[2022-05-25] MEDS: MIRTAZAPINE TAB 15 MG TAB PO SCH (21:49)
[2022-05-26 05:06] LABS: Marijuana Quant, GCMS Urine 118 ng/mL (<5)
[2022-05-26] MEDS: VENLAFAXINE HCL XR 75 MG CAPXR PO SCH (08:47)
--- NOTE | 2022-05-26 13:11 | Psychiatric Progress Note ---
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 Diagnostically consistent with major depressive disorder, recurrent with anxious distress and ADHD by history of history of cannabis use though has been abstaining from this for the past two weeks. 05/26/22: improving (1) MDD (major depressive disorder), recurrent episode, severe: (2) ADHD (attention deficit hyperactivity disorder): Plan 05/26/22: continue current medications and treatment plan. 05/25/22: Continue current medications and tx plan. Ongoing motivational interviewing. 05/24/22: The patient was admitted to the [facility] ([facility] inpatient mental health unit) on q15 min checks (behavioral with suicide precautions) for safety. The patient will participate in group, recreational, and milieu therapies and will be offered additional individual and family sessions as clinically appropriate. -Effexor XR 225mg qd -mirtazapine 15mg qhs -CAMS approach to his suicidality to further delineate his driving factors and modifiable risk factors -Encourage [facility] IOP consideration Inventory Assets Strengths: supportive relationships, willing to get treatment, good rapport with outpatient providers Needs: safety and stabilization, medication adjustment, additional coping skills, increased outpatient services Suicide Risk Level Suicide Risk Level: Moderate (q15 min suicide checks) Risk Factors Assessment Male: Yes Do You Have Access To A Gun?: Yes Mental Health Diagnoses: Yes Previous Attempt: Yes Previous Psychiatric Hospitalization: Yes Protective Factors Assessment Employed: No Stable Relationships: Yes Supportive Family: Yes Good Rapport with Provider: Yes Interval History Identifying Information MARIO GUNDERSON is a 22-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 Chief Complaint "I feel like I'm at a better place." Review of Systems Sleep Information Total Hours of Sleep: 8 Meal Information Percent Meal Consumed - Breakfast: 100 Percent Meal Consumed - Lunch: 100 Percent Meal Consumed - Dinner: 100 Subjective Subjective Patient was seen & assessed and interval progress reviewed with treatment team. Now feels that his classes are salvageable and not "sole reason to live or ." meeting with parents this am. distracted by objects in room and asked about his Ritalin. Reviewed that stimulant would be at discretion of outpatient prescriber given only 2 weeks off of MJ, etc. Physical Exam Psychiatric Orientation: alert and oriented x 3 Apperance: appropriately dressed and appropriately groomed Eye Contact: good eye contact Motor Behavior: no abnormal motor movements Speech: normal rate/rhythm/volume of speech Mood: + depressed mood Thought Process: goal directed thought process Thought Content: reality based without delusions Suicidal Thoughts: denies suicidal thoughts Homicidal Thoughts: denies homicidal thoughts Hallucinations: no auditory hallucinations and no visual hallucinations Insight: + limited insight Judgement: + limited judgement Vital Signs (Past 24 Hours) Last Vital Signs Temp 36.3 C L 05/26/22 06:00 Pulse 63 05/26/22 06:54 Resp 16 05/26/22 06:00 BP 105/68 05/26/22 06:54 Pulse Ox 99 05/26/22 06:00 O2 Del Method 05/26/22 06:00 Results & Data ([facility]) Laboratory Results Laboratory Results - last 24 hr 05/23/22 20:15 U Marijuana THC Carboxy 118 H Drug Screen Comment SEE NOTE Current Inpatient Medications Current Inpatient Medications: Current Inpatient Medications Acetaminophen (Acetaminophen 325 Mg Tab) 650 mg PO Q4H PRN PRN Reason: Headache or Minor Fever Stop: 06/22/22 23:47 Al Hydrox/Mg Hydrox/Simethicone (Aluminum/Magnesium Susp 30 Ml Udc) 30 ml PO Q4H PRN PRN Reason: GI Upset Stop: 06/22/22 23:47 Bismuth Subsalicylate (Bismuth Subsalicylate Liqd 236 Ml) 15 ml PO PRN PRN PRN Reason: Loose Stool Stop: 06/22/22 23:47 Hydroxyzine HCl (Hydroxyzine Hcl 25 Mg Tab) 50 mg PO HSZ PRN PRN Reason: Insomnia Stop: 06/22/22 23:47 Hydroxyzine HCl (Hydroxyzine Hcl 25 Mg Tab) 25 mg PO Q4H PRN PRN Reason: Anxiety Stop: 06/22/22 23:47 Magnesium Hydroxide (Magnesium Hydroxide Susp 30 Ml Udc) 30 ml PO DAILY PRN PRN Reason: Constipation Stop: 06/22/22 23:47 Mirtazapine (Mirtazapine Tab 15 Mg Tab) 15 mg PO HS CALVIN Stop: 06/23/22 21:59 Last Admin: 05/25/22 21:49 Dose: 15 mg Sodium Chloride (Sodium Chloride 0.65% Na Soln 45 Ml (Kell)) 1 - 2 sprays NA PRN PRN PRN Reason: Nasal Dryness/Congestion Stop: 06/22/22 23:47 Venlafaxine HCl (Venlafaxine Hcl Xr 75 Mg Capxr) 225 mg PO DAILY CALVIN Stop: 06/23/22 15:14 Last Admin: 05/26/22 08:47 Dose: 225 mg Mental Health & Subst Abuse Tx Psychiatrist Name of Psychiatrist: [facility] Date of Appointment with Psychiatrist: 06/24/22 Time of Appointment with Psychiatrist: 1:20 PM (40 min appt) Psychiatric Appointment Comment: [address] [place], [place] Therapist Name of Therapist: [facility] Therapist's Date of Therapist Appointment: 05/28/22 Time of Therapist Appointment: 9:00 AM Therapy Appointment Comment: via Zoom Post Discharge Appointments Primary Care Physician Name Of Family Doctor: Monik Stevens Primary Care Provider Appointment Comment: [address] *follow up as needed* Contact Information Discharge Discharge Address: [place] [address]
[2022-05-26] MEDS: MIRTAZAPINE TAB 15 MG TAB PO SCH (21:09)
--- NOTE | 2022-05-27 09:04 | Discharge Summary ---
Date of Service May 27, 2022 History of Present Illness As per Dr. Valentin on admission: Mario presents for psychiatric admission for worsening depression and SI with plan of driving or jumping from a bridge in the context of multiple psychosocial stressors including academic challenges and recently stopping use of cannabis. He describes having intermittent chronic "vague suicidal thoughts" but that these have not been as intense since being on venlafaxine but over the past few weeks SI has been "ramping up" because of school stress and the semester getting more difficulty. He notes his identity is tied to his grades and he feels like if he fails his classes he by jumping from a specific bridge in [place] and notes this has been a plan for awhile but his outpatient therapist recommended given that this hasn't been lessening that he should consider inpatient treatment. He explains "the bridge is so high I know if I were to jump there it would work for sure". He's taking 5 courses this semester and 3 are going well but 2 are not. He's been struggling to attend class due to his sleep schedule with his lowest grades in his two morning classes. He struggles to identify reasons for living but is able to list his family and potential to improve his academics and eventually get a job and talking to friends from high school. He endorses depressive symptoms including anhedonia (no longer likes playing video games or watching videos/content), self-guilt, hopelessness, helplessness, low energy, decreased motivation, decreased concentration (feels like he can only focus at 2 or 3am or if he uses Ritalin), sleep schedule is very inconsistent, decreased appetite has lost about 40 lbs in the last year in part due to wanting to lose weight but also due to not being hungry usually only 1-2 meals. Experiences SI every day with plan of the bridge starting about 1 year ago but now feels like due to history of academic probation and multiple years of taking a break that "I'm not sure how much longer I can keep doing this". He also endorses some anxiety that he tends to worry a lot. Further recent history reviewed and confirmed as documented by ED psych CM on 05/23/22: "CM and Dr. Wolfe met with pt bedside to complete brief MH and suicide risk assessment. Pts parents in attendance with pt consent. Pt here on recommendation of his therapist, Melissa Jarvis and his prescriber, Roshni Traylor PA-C, both with [facility]. Pt states he has had chronic suicidal ideations over the past year but states they have worsened lately. Pt is suicidal with a plan to either drive or jump off the [place] [address] in [facility] if he does not get his grades up this semester. 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 He denies current D&A use but was smoking marijuana chronically until two weeks ago. No prior inpatient stays. 1 prior suicide attempt approximately 5 years ago via overdose. Pt states his suicidal ideations are worse now than they were at that time. Denies self-injury, denies AH/VH/Paranoia. Pt states his dreams have been more "unsettling" lately. Pt has been sleeping during the day and staying up most of the night, decreased appetite over the past year as well resulting in a weight loss of approximately 40 pounds. Pt is on Effexor 225mg and was recently on Methylphenidate but stopped about 2 weeks ago per prescriber recommendation. Pt is willing for inpatient stay at this time and prefers . Process for medical clearance was explained with pt verbalizing understanding." He is currently prescribed Effexor XR 225mg with dose increased a few months ago, he feels like this has been helping. Believes he also started mirtazapine this past week to help with appetite. Psychiatric ROS notable for no current nor history of symptoms of franklin, psychosis, PTSD, OCD nor eating disorder. History of self-harming once via cutting himself on his hand when depressed a few years ago but never since then. Has brought home an Xacto knife from worse thinking about harming himself via cutting to self-soothe but never acted on this. Physical Exam Psychiatric See admission H&P and DOD assessment. Vital Signs (Past 24 Hours) Last Vital Signs Temp 36.1 C L 05/27/22 06:00 Pulse 61 05/27/22 06:40 Resp 16 05/27/22 06:00 BP 99/65 L 05/27/22 06:40 Pulse Ox 100 05/27/22 06:00 O2 Del Method 05/27/22 06:00 Principal Diagnosis major depressive disorder Psychiatric Data See daily stay summary. In short, safety was maintained and the patient was cooperative with care. He declined medication changes which was not inappropriate given that he recently stopped regular MJ use (hx of heavy) and responded to cognitive techniques around avoiding all or nothing thinking with regards to his classes. He was on a good routine with sleep hygiene and am awakening. He was future focussed with seeing his sister for Thanksgiving break and also finishing his classes. He decided against deferring 2 of his 4 classes. A family session was held with parents who were very supportive and confirmed that there are no weapons in their home/patient does not have access as part of his discharge safety plan. He did express interest in restarting ADHD medication and his appointment was moved up with his outpatient provider to facilitate this discussion. Day of Discharge Assessment Today the patient voices readiness for discharge. They note improvement in mood and deny thoughts to harm self or others. Thoughts remain organized and they are improved from admission. There is no evidence of psychosis. They agree to take mediations as prescribed and keep follow-up appointments. They are stable for discharge to outpatient level of care. Transition of Care Transition Of Care Record: was reviewed with the patient Advance Directives Advance Directives Information Provided: No Advance Directives: No Mental Health Advance Directive: No Advance Directives on File: No Living Will: No Power of Appliance Technician: No Advance Directives Reason:: Declines as Mental Health Visit. Suicide Risk Level Suicide Risk Level Comments: Suicide risk at discharge is deemed low as the patient is no longer requiring 24-hr monitoring, has a safety plan, and is free of suicidal ideation at discharge. Risk Factors Assessment Male: Yes Do You Have Access To A Gun?: No Mental Health Diagnoses: Yes Previous Attempt: Yes Previous Psychiatric Hospitalization: Yes Protective Factors Assessment Employed: No Stable Relationships: Yes Supportive Family: Yes Good Rapport with Provider: Yes Tobacco Cessation at Discharge Tobacco Cessation Medication Prescribed at Discharge: Not Applicable/Non-Smoker Total Time Total Time Spent: Greater Than 30 Minutes Total Time Includes: Examination of the patient, Discharge Planning and Medication Reconciliation Discharge Data Lab Results 05/23/22 05/23/22 05/23/22 20:15 20:15 20:15 WBC RBC Hgb Hct MCV MCH MCHC RDW Std Deviation RDW Coeff of Francois Plt Count MPV Immature Gran % (Auto) Neut % (Auto) Lymph % (Auto) [place] % (Auto) Eos % (Auto) Baso % (Auto) Neut # (Auto) Lymph # (Auto) [place] # (Auto) Eos # (Auto) Baso # (Auto) Immature Gran # (Auto) Sodium Potassium Chloride Carbon Dioxide Anion Gap BUN Creatinine Est Cr Clr Drug Dosing Est GFR ( Amer) Est GFR (Non-Af Amer) BUN/Creatinine Ratio Glucose Calcium Total Bilirubin AST ALT Alkaline Phosphatase Total Protein Albumin Globulin Albumin/Globulin Ratio TSH Urine Color Yellow Urine Appearance Clear Urine pH 6.5 Ur Specific [place] 1.004 Urine Protein Negative Urine Glucose (UA) Negative Urine Ketones Negative Urine Blood Negative Urine Nitrite Negative Urine Bilirubin Negative Urine Urobilinogen Negative Ur Leukocyte Esterase Negative Salicylates Urine Opiates Screen Neg Ur Methadone, Qual Neg Acetaminophen Urine Barbiturates Neg Ur Phencyclidine (PCP) Neg U Amphetamin/Meth Scrn Neg MDMA (Ecstasy) Screen Neg U Benzodiazepines Scrn Neg Ur Cocaine Metabolite Neg U Marijuana (THC) Screen Pos H U Marijuana THC Carboxy Drug Screen Comment Ethyl Alcohol mg/dL SARS-CoV-2, RNA, NAAT NEGATIVE 05/23/22 05/23/22 05/23/22 20:15 20:45 20:45 WBC 6.78 RBC 4.80 Hgb 14.3 Hct 41.6 MCV 86.7 MCH 29.8 MCHC 34.4 RDW Std Deviation 39.2 RDW Coeff of Francois 12.3 Plt Count 198 MPV 10.2 Immature Gran % (Auto) 0.0 Neut % (Auto) 57.3 Lymph % (Auto) 31.3 [place] % (Auto) 9.4 Eos % (Auto) 1.6 Baso % (Auto) 0.4 Neut # (Auto) 3.88 Lymph # (Auto) 2.12 [place] # (Auto) 0.64 Eos # (Auto) 0.11 Baso # (Auto) 0.03 Immature Gran # (Auto) 0.00 Sodium 140 Potassium 4.0 Chloride 104 Carbon Dioxide 30 Anion Gap 6 BUN 22 Creatinine 1.24 Est Cr Clr Drug Dosing 84.3 Est GFR ( Amer) 95.0 Est GFR (Non-Af Amer) 82.0 BUN/Creatinine Ratio 17.7 Glucose 84 Calcium 9.7 Total Bilirubin 0.4 AST 15 ALT 26 Alkaline Phosphatase 39 Total Protein 7.2 Albumin 4.6 Globulin 2.6 Albumin/Globulin Ratio 1.8 TSH Urine Color Urine Appearance Urine pH Ur Specific [place] Urine Protein Urine Glucose (UA) Urine Ketones Urine Blood Urine Nitrite Urine Bilirubin Urine Urobilinogen Ur Leukocyte Esterase Salicylates Urine Opiates Screen Ur Methadone, Qual Acetaminophen Urine Barbiturates Ur Phencyclidine (PCP) U Amphetamin/Meth Scrn MDMA (Ecstasy) Screen U Benzodiazepines Scrn Ur Cocaine Metabolite U Marijuana (THC) Screen U Marijuana THC Carboxy 118 H Drug Screen Comment SEE NOTE Ethyl Alcohol mg/dL SARS-CoV-2, RNA, NAAT 05/23/22 05/23/22 05/23/22 20:45 20:45 20:45 WBC RBC Hgb Hct MCV MCH MCHC RDW Std Deviation RDW Coeff of Francois Plt Count MPV Immature Gran % (Auto) Neut % (Auto) Lymph % (Auto) [place] % (Auto) Eos % (Auto) Baso % (Auto) Neut # (Auto) Lymph # (Auto) [place] # (Auto) Eos # (Auto) Baso # (Auto) Immature Gran # (Auto) Sodium Potassium Chloride Carbon Dioxide Anion Gap BUN Creatinine Est Cr Clr Drug Dosing Est GFR ( Amer) Est GFR (Non-Af Amer) BUN/Creatinine Ratio Glucose Calcium Total Bilirubin AST ALT Alkaline Phosphatase Total Protein Albumin Globulin Albumin/Globulin Ratio TSH 0.652 Urine Color Urine Appearance Urine pH Ur Specific [place] Urine Protein Urine Glucose (UA) Urine Ketones Urine Blood Urine Nitrite Urine Bilirubin Urine Urobilinogen Ur Leukocyte Esterase Salicylates < 3.0 L Urine Opiates Screen Ur Methadone, Qual Acetaminophen < 3 L Urine Barbiturates Ur Phencyclidine (PCP) U Amphetamin/Meth Scrn MDMA (Ecstasy) Screen U Benzodiazepines Scrn Ur Cocaine Metabolite U Marijuana (THC) Screen U Marijuana THC Carboxy Drug Screen Comment Ethyl Alcohol mg/dL < 10.0 SARS-CoV-2, RNA, NAAT Hospital Course (1) MDD (major depressive disorder), recurrent episode, severe: (2) ADHD (attention deficit hyperactivity disorder): Plan 05/26/22: continue current medications and treatment plan. 05/25/22: Continue current medications and tx plan. Ongoing motivational interviewing. 05/24/22: The patient was [facility] the [facility] on q15 min checks (behavioral with suicide precautions) for safety. The patient will participate in group, recreational, and milieu therapies and will be offered additional individual and family sessions as clinically appropriate. -Effexor XR 225mg qd -mirtazapine 15mg qhs -CAMS approach to his suicidality to further delineate his driving factors and modifiable risk factors -Encourage [facility] IOP consideration Mental Health & Subst Abuse Tx Psychiatrist [facility] Date of Appointment with Psychiatrist: 06/24/22 Time of Appointment with Psychiatrist: 1:20 PM (40 min appt) Psychiatric Appointment Comment: [address] [place], [place] Therapist [facility] The[facility]ist[facility] Therapist's Date of Therapist Appointment: 05/28/22 Time of Therapist Appointment: 9:00 AM Therapy Appointment Comment: via Zoom Post Discharge Appointments Primary Care Physician Name Of Family Doctor: Monik Stevens Primary Care Provider Appointment Comment: [address] Dr[address] *follow up as needed* Smoking Cessation Counseling Tobacco Cessation Medication Prescribed at Discharge: Not Applicable/Non-Smoker Other #1: Name of Aftercare Appointment: [facility] Phone Number of Aftercare Appointment: [phone] Aftercare Appointment Comment: Check your [facility] email for apppointment and Zoom link. #2: Name of Aftercare Appointment: [facility] Phone Number of Aftercare Appointment: Aftercare Appointment Comment: They will contact you to complete intake / schedule group session. #3: Name of Aftercare Appointment: [facility] - Intensive Outpatient Program Phone Number of Aftercare Appointment: [phone] Aftercare Appointment Comment: Please call if you are interested in IOP in the future. Contact Information Discharge Discharge Address: [place] [address] Discharge Plan Discharge Items Patient Disposition: Home - Self-Care Reason For Visit: MAJOR DEPRESSIVE DISORDER Discharge Diagnosis: major depressive disorder Activity: Resume your previous activity Non-emergency contact: Primary Care Provider, Psychiatrist and Therapist Call non-emergency contact if: you have any medication questions and your symptoms worsen Follow-up/Referrals: Saeed Stevens, DO [Primary Care Provider] - Diet: Regular Addtl Attending Provider Instructions: SPECIAL CARE INSTRUCTIONS: 1. Follow through with your scheduled aftercare appointments. If unable to keep an appointment, please call to reschedule. 2. Take your medication only as prescribed. Medication should not be changed or stopped without the approval of your doctor. In the event of worsening symptoms or concerns about side effects, contact your doctor immediately. 3. Utilize new healthy coping skills, anger management skills, and stress management skills learned during your hospitalization. Journal feelings and process them with a support person. Identify stressors or situations that may result in relapse, deterioration or inappropriate behaviors and develop a plan to deal with those issues. 4. If your coping skills are ineffective and you are in crisis, contact your outpatient providers for direction. If unable to reach your providers, please call the [facility] CRISIS LINE AT , go to the [facility] walk-in center at [address] [place] [address] A, [place], or go to the closest Emergency Room. 5. Avoid alcohol and un-prescribed drugs. 6. You have been provided with the Mental Health Advance Directives Pamphlet for your review. 7. Your condition is stable for discharge to outpatient level of care, but recovery is an ongoing process. Ifthoughts to harm yourself or others return, follow the safety plan developed during your stay. Planning for a safe return home includes securing weapons. Our treatment team recommends weaponsbe removed from the home until your outpatient provider reassesses your progress. In rare cases where the items themselvescannot be removed, guns and ammunitionshould be secured separatelyand keys stored by a reliable personoutside of the home. If you were admitted on an involuntary commitment, the police or other legal authorities may be involved in this process. AFTERCARE APPOINTMENTS: * Please call your insurance company prior to your scheduled appointment to confirm your aftercare providers are covered. Take your insurance information to your appointments. WHO TO CALL AND WHEN: Medical Emergencies: For questions or emergencies related to your hospital stay, please contact the Inpatient Behavioral Health Unit at [phone]. A ic designer standard cells is on-call 26/01 for the Behavioral Health Unit for emergencies At any time you feel your situation is an emergency, you may also call 911 immediately. Pending Studies at Discharge: No Stand-Alone Forms: My [facility], Smoking Cessation Medications and DC Order Prescriptions: New mirtazapine 15 mg Tablet 15 mg PO HS Qty: 1 0RF Continued venlafaxine [Effexor XR] 150 mg capsule,extended release 24hr 225 mg PO DAILY Discharge Orders: Discharge Order (Routine); Ordered 05/27/22 Ordered By: Katey Lorenzana Admission Data Admit Date/Time: 05/23/22 23:48 Attending Provider: Katey Lorenzana Admit Provider: Lisa Valentin Primary Care Provider: Saeed Stevens Other Interventions: Discharge Summary Assessment (RN) Last Done: 05/27/22 09:29 Coding Level of Care Code 71405 D/C day mgmt > 30 min Diagnoses MDD (major depressive disorder), recurrent episode, severe F33.2 ADHD (attention deficit hyperactivity disorder) F90.9
[2022-05-27] MEDS: VENLAFAXINE HCL XR 75 MG CAPXR PO SCH (09:05)
== END 2022-05-27 10:20 | disposition home or self-care (01) | DRG 885 ==
LOC: ED 19:51 → 3S 23:48 → SUATTDRO 23:48 → 3S 05-24 00:20